=== PATIENT | male | born 1985 | race Caucasian/White ===

== ENCOUNTER 2018-07-12 12:19 | Emergency (ER) | payer MEDICAID ==
[~2018-07-12] VITALS: Wt 120.0 kg
[2018-07-12 12:21] VITALS: BP 132/79; PULSE 77; RESP 16
[2018-07-12] MEDS ORDERED: KETOROLAC 30 MG INJ IM STA (12:56)
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
[2018-07-12] MEDS ORDERED: IBUP-1542 PO (13:23)
[2018-07-12] MEDS ORDERED: BACL10TA PO (13:23)
[2018-07-12] MEDS ORDERED: ACET325T33 PO (13:23)
== END 2018-07-12 13:51 | disposition home or self-care (01) ==
LOC: FTE 12:19
DX: S23.3XXA Sprain of ligaments of thoracic spine, initial encounter (principal); X58.XXXA Exposure to other specified factors, initial encounter; Y92.9 Unspecified place or not applicable
CPT/HCPCS: 81003; 96372; J1885; Z7502